=== PATIENT | female | born 1940 | race Caucasian/White ===

== ENCOUNTER 2019-04-20 17:23 | Inpatient (IN) | payer OTHER, SELFPAY ==
[2019-04-20] VITALS (7 sets, daily range): BP systolic 146–192; BP diastolic 64–84; PULSE 55–64; RESP 14–20; TEMP 36.7–37.2; O2SAT 97–100; BMI 23.0
[2019-04-20] MEDS: ONDANSETRON 4 MG/2 ML INJ IV ×2 (18:10→21:23)
[2019-04-20] MEDS: SODIUM CHLORIDE 0.9% 1,000 ML 150 ML IV (18:10)
[2019-04-20 18:14] LABS: Add Manual Diff / Slide Review NO; Basophils Absolute Auto 100 /uL (0-100); Basophils Percent Auto 0.7 % (0-2); Eosinophils Absolute Auto 100 /uL (0-450); Eosinophils Percent Auto 0.7 % (2-4); Hematocrit 27.8 % (36-46); Lymphocytes Absolute Auto 2900 /uL (1100-4500); Lymphocytes Percent Auto 25.8 % (25-40); Mean Corpuscular HGB Conc 32.5 % (30-36); Mean Corpuscular Hemoglobin 29.4 PG (26-34); Mean Corpuscular Volume 90.5 fL (80-100); Monocytes Absolute Auto 1000 /uL (0-900); Neutrophils Absolute Auto 7300 /uL (1500-7000); Neutrophils Percent Auto 63.8 % (50-75); Platelet Count 364 X10^3/uL (150-400); Red Blood Cell Count 3.07 X10^6/uL (4.0-5.2); Red Cell Distribution Width 15.4 % (11.6-14.8); White Blood Cell Count 11.4 X10^3/uL (4.5-11.0)
[2019-04-20 18:17] LABS: Prothrombin Time 11.3 SECONDS (10.1-12.7)
[2019-04-20 18:19] LABS: PTT Partial Thromboplastin Tim 33 SECONDS (26.4-36.2)
[2019-04-20 18:26] LABS: Alanine Aminotransferase 17 IU/L (<35); Albumin Globulin Ratio 1.2 (1.0-2.8); Alkaline Phosphatase 110 U/L (38-126); Aspartate Aminotransferase 30 IU/L (14-36); BUN Creatinine Ratio 24.7 (6-22); Bilirubin Total 0.4 mg/dL (0.2-1.3); Blood Urea Nitrogen 47 mg/dL (7-17); Calcium 9.2 mg/dL (8.4-10.2); Carbon Dioxide 22 mmol/L (22-32); Chloride 100 mmol/L (98-107); Estimated Glomerular Filt Rate 25.5 mL/min (>60); Globulin 3.4 g/dL (1.7-4.1); Glucose 211 mg/dL (80-110); HEMOLYSIS < 15 (0-50); Lipase 288 U/L (23-300); Potassium 4.4 mmol/L (3.4-5.1); Sodium 136 mmol/L (137-145); Total Protein 7.4 g/dL (6.3-8.2)
--- NOTE | 2019-04-20 18:36 | ED_ITS ---
HPI - General Adult General Chief complaint: Urogenital-Female Stated complaint: kidney issues Time Seen by Provider: 04/20/19 18:21 Source: patient Mode of arrival: Ambulatory Limitations: no limitations History of Present Illness HPI narrative: 78-year-old woman with a history of chronic pain, hypertension, congenital pelvic nonfunctional kidney presented to her primary care doctor yesterday complaining of 2 weeks of general malaise increasing right flank pain, vomiting diarrhea and was noted to have an almost 15 lb weight loss over the past month. Labs were done CT scan was ordered she was started on Keflex for presumed UTI. Labs returned today with significantly worsening renal function and she sent to the emergency room for further evaluation. Her family notes that she has not been eating much over the last 2 weeks. She is on both OxyContin and oxycodone for chronic pain to the complaints of increasing right flank pain are even more concerning. She apparently has had her gallbladder removed but recurrence gallstones and blockages with ERCPs were done in [place]. Last episodes of vomiting and diarrhea for about 48 hours ago. She continues to feel weak but has no other complaints. She denies fever, rashes, cough,, headache, increased edema, dizziness Related Data Home Medications Medication Instructions Recorded Confirmed aspirin [Adult Low Dose Aspirin] 81 mg PO BEDTIME 04/20/19 04/20/19 atorvastatin 40 mg PO BEDTIME 04/20/19 04/20/19 carvedilol [Coreg] 12.5 mg PO BEDTIME 04/20/19 04/20/19 cephalexin 500 mg PO BID 04/20/19 04/20/19 cholecalciferol (vitamin D3) 1,000 unit PO BEDTIME 04/20/19 04/20/19 cimetidine [Tagamet HB] 400 mg PO BEDTIME 04/20/19 04/20/19 diltiazem HCl [Tiazac] 360 mg PO BEDTIME 04/20/19 04/20/19 donepezil [Aricept] 10 mg PO BEDTIME 04/20/19 04/20/19 hydrochlorothiazide 25 mg PO BEDTIME 04/20/19 04/20/19 insulin glargine [Lantus Solostar 30 unit SUBCUT BEDTIME 04/20/19 04/20/19 U-100 Insulin] insulin lispro 5 - 10 unit SUBCUT TID PRN 04/20/19 04/20/19 losartan 100 mg PO BEDTIME 04/20/19 04/20/19 multivitamin,[id number] 1 tab PO BEDTIME 04/20/19 04/20/19 [Complete Multivitamin] naloxone 4 mg INTRANASAL Q3M PRN 04/20/19 04/20/19 oxycodone [OxyContin] 10 mg PO BID 04/20/19 04/20/19 oxycodone-acetaminophen [Percocet] 1 tab PO Q6H PRN 04/20/19 04/20/19 potassium chloride 8 meq PO BEDTIME 04/20/19 04/20/19 trazodone 150 mg PO BEDTIME 04/20/19 04/20/19 vit C-E-zinc [id number] 1 tab PO BEDTIME 04/20/19 04/20/19 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 (Acute) Social History household members: significant other Smoking Status: Unknown if ever smoked Smoking Status: Unknown if ever smoked alcohol intake frequency: holidays/special occasions only Substance Use Type: does not use Exam Narrative Exam Narrative: General: Pale, perseverating questions, unable to provide complete history HEENT: Dry mucous membranes, no cervical adenopathy Neck: Supple without jugular venous distention Chest: Minor scattered wheezes throughout lung mijares without any rhonchi, full and symmetrical air movemen Cardiac: Regular rate and rhythm, no murmurs are appreciated Abdomen: Mild tenderness in the right lower quadrant radiating up into the right flank without rebound or guarding. Normal bowel tones Spine and pelvis: No point tenderness along the axial skeleton and no tenderness with manipulation of the pelvis Skin: Pale dry no rashes well perfused Neurologic: Mild memory deficit but nonfocal exam otherwise Psych: Poor insight and understanding into information related Initial Vital Signs Initial Vital Signs: Vital Signs Temperature 98.5 F 04/20/19 17:30 Pulse Rate 64 04/20/19 17:30 Respiratory Rate 14 04/20/19 17:30 Blood Pressure 169/72 H 04/20/19 17:30 Pulse Oximetry 100 04/20/19 17:30 Course Orders Ordered: ED Orders 04/20/19 18:00 Complete Blood Count AUTO DIFF Stat Comprehensive Metabolic Panel Stat Lipase Stat Partial Thromboplastin Time Stat Prothrombin Time INR Stat 04/20/19 18:54 CT abdomen pelvis wo con Stat Acetaminophen (Tylenol) 975 mg PO Q8H [facility] Last Admin: 04/21/19 00:20 Dose: 975 mg Documented by: IBIS Bisacodyl (Dulcolax) 10 mg [place] DAILY PRN PRN Reason: Constipation Docusate Sodium (Colace) 100 mg PO BID PRN PRN Reason: Constipation Heparin Sodium (Porcine) (Heparin) 5,000 unit SUBCUT BID [facility] Last Admin: 04/21/19 00:20 Dose: 5,000 unit Documented by: IBIS Hydromorphone HCl (Dilaudid) 1 mg IV Q3H PRN PRN Reason: BREAKTHROUGH PAIN Sodium Chloride (Normal Saline 0.9%) 1,000 mls @ 100 mls/hr IV BOLUS ONE Stop: 04/21/19 04:04 Last Infusion: 04/21/19 00:29 Dose: 100 mls/hr Documented by: Infusion: 04/20/19 20:48 Dose: 150 mls/hr Documented by: Admin: 04/20/19 18:10 Dose: 150 mls/hr Documented by: GIDEON Naloxone HCl (Narcan) 0.2 mg IV Q2MIN PRN PRN Reason: Opiate Reversal Ondansetron HCl (Zofran) 8 mg IV Q8HR PRN PRN Reason: Nausea And Vomiting Oxycodone HCl (Percolone) 10 mg PO Q6HR PRN PRN Reason: Pain, Severe (7-10) Discontinued Medications Hydromorphone HCl (Dilaudid) 1 mg IV NOW ONE Stop: 04/20/19 22:21 Last Admin: 04/20/19 22:31 Dose: 1 mg Documented by: CLAIR Ondansetron HCl (Zofran) 4 mg IV NOW ONE Stop: 04/20/19 18:05 Last Admin: 04/20/19 18:10 Dose: 4 mg Documented by: GIDEON Ondansetron HCl (Zofran) 4 mg IV NOW ONE Stop: 04/20/19 21:18 Last Admin: 04/20/19 21:23 Dose: 4 mg Documented by: GIDEON Oxycodone HCl (Oxycontin) 10 mg PO NOW ONE Stop: 04/20/19 21:18 Last Admin: 04/20/19 21:23 Dose: 10 mg Documented by: GIDEON Oxycodone HCl (Percolone) 5 mg PO NOW ONE Stop: 04/20/19 21:19 Last Admin: 04/20/19 21:23 Dose: 5 mg Documented by: GIDEON Pantoprazole Sodium (Protonix) 40 mg IV NOW ONE Stop: 04/20/19 22:22 Last Admin: 04/20/19 22:33 Dose: 40 mg Documented by: CLAIR Vital Signs Vital signs: Vital Signs - 8 hr 04/20/19 17:30 04/20/19 18:00 04/20/19 19:00 Temperature 98.5 F Pulse Rate 64 61 55 L Respiratory Rate 14 18 18 Blood Pressure 169/72 H Blood Pressure [Right Arm] 192/84 H 173/74 H Pulse Oximetry 100 97 99 04/20/19 19:52 Temperature Pulse Rate 56 L Respiratory Rate 14 Blood Pressure Blood Pressure [Right Arm] 173/75 H Pulse Oximetry 99 Medical Decision Making Medical Records Medical records reviewed: Yes I reviewed the patient's medical records. Lab Data Lab results reviewed: Yes I reviewed the patient's lab results. Result diagrams: 04/20/19 18:00 04/20/19 18:00 Labs: Lab Results 04/20/19 04/20/19 04/20/19 Range/Units 18:00 18:00 18:00 WBC 11.4 H (4.5-11.0) X10^3/uL RBC 3.07 L (4.0-5.2) X10^6/uL Hgb 9.0 L (12.0-16.0) g/dL Hct 27.8 L (36-46) % MCV 90.5 (80-100) fL MCH 29.4 (26-34) PG MCHC 32.5 (30-36) % RDW 15.4 H (11.6-14.8) % Plt Count 364 (150-400) X10^3/uL Neut % (Auto) 63.8 (50-75) % Lymph % (Auto) 25.8 (25-40) % [place] % (Auto) 9.0 (3-14) % Eos % (Auto) 0.7 L (2-4) % Baso % (Auto) 0.7 (0-2) % Neut # (Auto) 7300 H (9546-5394) /uL Lymph # (Auto) 2900 (3786-4848) /uL [place] # (Auto) 1000 H (0-900) /uL Eos # (Auto) 100 (0-450) /uL Baso # (Auto) 100 (0-100) /uL PT 11.3 (10.1-12.7) SECONDS INR 1.0 (0.9-1.3) APTT 33 (26.4-36.2) SECONDS Sodium 136 L (137-145) mmol/L Potassium 4.4 (3.4-5.1) mmol/L Chloride 100 (98-107) mmol/L Carbon Dioxide 22 (22-32) mmol/L BUN 47 H (7-17) mg/dL Creatinine 1.90 H (0.52-1.04) mg/dL Estimated GFR 25.5 L (>60) mL/min BUN/Creatinine Ratio 24.7 H (6-22) Glucose 211 H (80-110) mg/dL Calcium 9.2 (8.4-10.2) mg/dL Total Bilirubin 0.4 (0.2-1.3) mg/dL AST 30 (14-36) IU/L ALT 17 (<35) IU/L Alkaline Phosphatase 110 (38-126) U/L Total Protein 7.4 (6.3-8.2) g/dL Albumin 4.0 (3.5-5.0) g/dL Globulin 3.4 (1.7-4.1) g/dL Albumin/Globulin Ratio 1.2 (1.0-2.8) Lipase 288 (23-300) U/L Carcinoembryonic Ag (0.1-3.0) ng/mL 04/20/19 Range/Units 18:00 WBC (4.5-11.0) X10^3/uL RBC (4.0-5.2) X10^6/uL Hgb (12.0-16.0) g/dL Hct (36-46) % MCV (80-100) fL MCH (26-34) PG MCHC (30-36) % RDW (11.6-14.8) % Plt Count (150-400) X10^3/uL Neut % (Auto) (50-75) % Lymph % (Auto) (25-40) % [place] % (Auto) (3-14) % Eos % (Auto) (2-4) % Baso % (Auto) (0-2) % Neut # (Auto) (7080-5425) /uL Lymph # (Auto) (0753-1801) /uL [place] # (Auto) (0-900) /uL Eos # (Auto) (0-450) /uL Baso # (Auto) (0-100) /uL PT (10.1-12.7) SECONDS INR (0.9-1.3) APTT (26.4-36.2) SECONDS Sodium (137-145) mmol/L Potassium (3.4-5.1) mmol/L Chloride (98-107) mmol/L Carbon Dioxide (22-32) mmol/L BUN (7-17) mg/dL Creatinine (0.52-1.04) mg/dL Estimated GFR (>60) mL/min BUN/Creatinine Ratio (6-22) Glucose (80-110) mg/dL Calcium (8.4-10.2) mg/dL Total Bilirubin (0.2-1.3) mg/dL AST (14-36) IU/L ALT (<35) IU/L Alkaline Phosphatase (38-126) U/L Total Protein (6.3-8.2) g/dL Albumin (3.5-5.0) g/dL Globulin (1.7-4.1) g/dL Albumin/Globulin Ratio (1.0-2.8) Lipase (23-300) U/L Carcinoembryonic Ag 7.5 H (0.1-3.0) ng/mL Urine Dip Bedside Urine Glucose Negative Bedside Urine Bilirubin - Negative Bedside Urine Ketone + 15 Urine Specific [place] 1.020 Bedside Urine Occult Blood - Negative Bedside Urine pH 5.5 Bedside Urine Protein +/- 15 Bedside Urine Urobilinogen - Negative Bedside Urine Nitrite - Negative Bedside Urine Leukocytes - Negative Esterase Point of care testing: Urine Dip Bedside Urine Glucose Negative Bedside Urine Bilirubin - Negative Bedside Urine Ketone + 15 Urine Specific [place] 1.020 Bedside Urine Occult Blood - Negative Bedside Urine pH 5.5 Bedside Urine Protein +/- 15 Bedside Urine Urobilinogen - Negative Bedside Urine Nitrite - Negative Bedside Urine Leukocytes - Negative Esterase Imaging Data CT scan - abdomen/pelvis: Radiologist's Impression: PELVIS: Genitourinary: The bladder is decompressed. There is a intermediate density 4.3 x 4.5 x 4.4 cm mass within the right hemipelvis (series 2/image 56 and series 4/image 28). The uterus and ovaries are not visualized and may be surgically absent. There is a healed right obturator ring fracture. Miscellaneous: No inguinal hernias or adenopathy. Bones: No suspicious bony lesions. No vertebral body compression fractures. IMPRESSION: 1. Pneumobilia and prior cholecystectomy. Findings may be associated with prior biliary intervention. 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 No hydronephrosis or nephrolithiasis. 3. Right hemipelvic mass. It is unclear whether this represents an adnexal mass given the absence of the ovaries and uterus. If prior cross-sectional studies are available, these would be useful for comparison to determine growth over time. 4. Diverticulosis. No acute diverticulitis. These findings were discussed with Dr. Mcnamara at 7:42 PM on 04/20/19. Dictated by: Lynette Doshi M.D. on 04/20/2019 at 19:35 ECG Data Attestation: I personally reviewed and interpreted this ECG as follows: Interpretation: Normal sinus rhythm with a rate of 60, left axis deviation normal intervals. No acute ischemia. MDM Narrative Medical decision making narrative: 78-year-old woman with worsening renal function creatinine, 0.8 in 2018, yesterday up to 2.5 and today back down to 1.9. Worsening anemia with hemoglobin of 12.6 a year ago down to 9.0 today, within indicate increased RDW as well as MCV. CT scan with a mass in the right hemipelvis unknown whether this is new or changing. There is a mention of a pelvic mass and adnexal cyst from 2014 and 2016 but no comparison films today. Would like to admit the patient for hydration further evaluation of the anemia, renal failure as well as pelvic mass and whether she would like to have this further evaluated or not. 832pm reviewed care with hospital list admitting [employer] Mr. Fuchs Discharge Plan Departure Patient Disposition: Admitted As Inpatient Clinical Impression: Abdominal or pelvic swelling, mass, or lump, right lower quadrant, Abnormal weight loss, Memory loss Acute renal failure Qualifiers: Acute renal failure type: unspecified Qualified Code(s): N17.9 - Acute kidney failure, unspecified Anemia Qualifiers: Anemia type: unspecified type Qualified Code(s): D64.9 - Anemia, unspecified Discharge Date/Time: 04/20/19 21:29 Admit Date/Time: 04/20/19 20:40 Admit Provider: Duane Fuchs
--- NOTE | 2019-04-20 18:54 | DI.CT.S_ITS ---
PROCEDURE: CT ABDOMEN PELVIS WO CON INDICATIONS: Right-sided abdominal pain, 15 lb weight loss in a month, TECHNIQUE: After the administration of oral contrast, 5 mm thick sections acquired from the diaphragms to the symphysis. 5 mm coronal and sagittal reformats were performed. For radiation dose reduction, the following was used: automated exposure control, adjustment of mA and/or kV according to patient size. COMPARISON: None. FINDINGS: Image quality: Excellent. ABDOMEN: Lung bases: Lung bases are clear. Heart size is normal. Solid organs: Liver is normal in size. There is moderate pneumobilia. Gallbladder is surgically absent. Pancreas is normal in size. Spleen is normal in size. No adrenal nodules. There is likely cross fused renal ectopia on the right side. No left-sided kidney is visualized. There is a low-density cyst within the midpole of the fused kidneys. Peritoneum and bowel: Bowel loops demonstrate normal wall thickness and caliber. There are scattered sigmoid diverticula. No evidence for diverticulitis. No free fluid or air. Nodes and vessels: No retroperitoneal or mesenteric adenopathy by size criteria. Aorta and inferior vena cava are normal in size. Dense atheromatous calcifications are present throughout the abdominal aorta. Miscellaneous: No ventral hernias. PELVIS: Genitourinary: The bladder is decompressed. There is a intermediate density 4.3 x 4.5 x 4.4 cm mass within the right hemipelvis (series 2/image 56 and series 4/image 28). The uterus and ovaries are not visualized and may be surgically absent. There is a healed right obturator ring fracture. Miscellaneous: No inguinal hernias or adenopathy. Bones: No suspicious bony lesions. No vertebral body compression fractures. IMPRESSION: 1. Pneumobilia and prior cholecystectomy. Findings may be associated with prior biliary intervention. 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 No hydronephrosis or nephrolithiasis. 3. Right hemipelvic mass. It is unclear whether this represents an adnexal mass given the absence of the ovaries and uterus. If prior cross-sectional studies are available, these would be useful for comparison to determine growth over time. 4. Diverticulosis. No acute diverticulitis. These findings were discussed with Dr. Mcnamara at 7:42 PM on 04/20/19. Dictated by: Lynette Doshi M.D. on 04/20/2019 at 19:35 Approved by: Lynette Doshi M.D. on 04/20/2019 at 19:44
[2019-04-20] MEDS: OXYCODONE ER 10 MG TAB PO (21:23)
[2019-04-20] MEDS: OXYCODONE IR 5 MG TABLET PO (21:23)
--- NOTE | 2019-04-20 21:28 | PC.NURSE ---
Isabel CORONA updated w/ medications given. Pt transferred via w/c w/ partner.
[2019-04-20] MEDS: HYDROMORPHONE 2 MG INJ 1 MG IV (22:31)
[2019-04-20] MEDS: PANTOPRAZOLE 40 MG VIAL IV (22:33)
--- NOTE | 2019-04-20 23:39 | PC.NURSE ---
pt c/o 10/10 sharp abd pain. V.O for dilaudid 1mg. pt. c/o nausea, protonix 40mg given. NPO. IVF. oriented patient to room. call light in reach. bed alarm active.
[2019-04-21] VITALS (7 sets, daily range): BP systolic 150–181; BP diastolic 59–80; PULSE 56–92; RESP 12–18; TEMP 36.1–36.7; O2SAT 94–99
[2019-04-21] LABS: Carcinoembryonic Antigen 7.5 ng/mL (0.1-3.0)
--- NOTE | 2019-04-21 | DI.MRI.S_ITS ---
PROCEDURE: MR PELVIS WO/W CON INDICATIONS: Pelvic mass on prior CT. TECHNIQUE: Coronal HASTE, sagittal breath-hold T2 FSE; axial T1 FSE with and without fat saturation through the pelvis. Optional long- and short-axis uterine nonbreath-hold T2 FSE through the uterus. Sagittal or axial dynamic VIBE during administration of contrast. Post-contrast axial or coronal VIBE/2-D FLASH with fat saturation from the iliac crests to the symphysis. Optional diffusion weighted imaging and ADC may be performed. COMPARISON: [facility], MR, MR ABDOMEN WO CON, 04/21/2019, 10:47. [facility], CT, CT ABDOMEN PELVIS WO CON, 04/20/2019, 19:25. FINDINGS: Image quality: There is motion artifact limiting evaluation. Uterus: Surgically absent. Adnexa: The ovaries are also surgically absent. Within the right hemipelvis, there is an oval circumscribed cystic lesion measuring approximately 4.5 x 3.4 x 4.3 cm with thin internal septations. There is a slightly thickened wall. This demonstrates hypointense to intermediate intensity on T1 and T2 hyperintensity. Following contrast administration, there is mild wall enhancement without a discrete nodular solid enhancing component internally. Urinary system: Bladder wall is normal in thickness. Distal ureters are non distended. There is crossed fused ectopia of the kidneys again noted. Urethra appears normal in morphology. Nodes and vessels: No pelvic or inguinal adenopathy by size criteria. Iliac vessels are normal in size. Bowel and peritoneum: No pathologic free pelvic fluid. Visualized small bowel loops are normal in caliber. There is moderate stool distention of the visualized rectosigmoid colon suggestive of constipation. Soft tissues: No inguinal hernias. Bones: Marrow demonstrates normal overall signal. There are healed fractures of the right superior and inferior pubic rami. IMPRESSION: 1. Septated cystic lesion in the right hemipelvis with a slightly thickened wall but no discrete solid internal enhancing component. There is intermediate T1 signal internally suggestive of proteinaceous or blood products. The differential includes a peritoneal inclusion cyst, paraovarian cyst, or cystic neoplasm. Recommend followup in 6 months to demonstrate stability if clinically indicated. Dictated by: Ishaan Suresh M.D. on 04/21/2019 at 17:05 Approved by: Ishaan Suresh M.D. on 04/21/2019 at 17:19
[2019-04-21] MEDS: HEPARIN 5,000 UNIT/ML VIAL 5000 UNIT SUBCUT ×2 (00:20→20:47)
[2019-04-21] MEDS: ACETAMINOPHEN 325 MG TABLET 975 MG PO ×3 (00:20→16:19)
--- NOTE | 2019-04-21 00:21 | P.HP_ITS ---
History of Present Illness History of Present Illness Date Patient Seen: 04/20/19 Time Patient Seen: 22:20 Chief complaint: kidney issues Narrative: Ms. 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 The patient reports that she has always has right upper quadrant pain and is on chronic opiate therapy including OxyContin and oxycodone. She was seen by her PCP yesterday with complaints of 2 weeks of malaise and increasing right flank pain. She had associated nausea vomiting and 15 lb weight loss over 1 month due to decreased oral intake. Labs were ordered and the patient was started on Keflex for presumptive UTI. Upon return of the labs it was noted the patient had a worsen ing of her renal function and sent to the ER for further evaluation. The patient reports that her abdominal pain has been worse originating sometimes in the right lower quadrant radiating up into the right upper quadrant other times in the right upper quadrant radiating around to the flank. She describes the pain as very sharp and crampy. She has no history of renal calculi. The patient continues to have associated malaise and weakness. The patient denies fevers or chills headaches or dizziness. She has had no nasal congestion or sore throat. She denies chest pain but endorses periodic palpitations which she has had for ?many many years?. The patient denies shortness of breath though did her abdominal pain increases with deep inspiration. She has had no cough or wheezing. She continues to have nausea but no vomiting. She reports stooling regularly with a habit of every other day. She denies urinary symptoms of urgency burning or frequency and no hematuria. Upon arrival to the ER the patient has a temperature of 98.5?, heart rate of 64, blood pressure 169/72 with respirations of 14 saturating 100% on room air. A CT the abdomen is obtained revealing moderate pneumobilia, gallbladder is surgically absent, liver pancreas and spleen all appear normal, bowel loops have normal wall thickness and normal caliber with scattered diverticula without diverticulitis. There is no free fluid or air. In the pelvis there is a right hemipelvic mass measuring 3.4 x 4.5 x 4.4 cm. Radiologist notes inability visualize ovary and uterus, possibly surgically absent, no adenopathy. On laboratory analysis the patient has a white count of 11.4, hemoglobin of 9.0, hematocrit of 27.8 and platelets of 364. She has a PT of 11.3, INR 1.0 and PTT of 33. Her electrolytes are within normal range she has a BUN of 47 and creatinine of 1.9 for an EGFR of 25.5. Her LFTs are within normal range with a total bili of 0.4, AST of 30, ALT is 17 and alkaline phosphatase 110 and albumin of 4.0. The patient is admitted to the medicine service for right upper quadrant abdominal pain requiring further evaluation and pain management. Patient History Medical History (Updated 04/21/19 @ 02:09 by TAWNYA Schultz) Biliary stricture (Inactive) Chronic atrial fibrillation (Acute) 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) Dementia (Acute) Diabetic retinopathy (Acute) Gastroesophageal reflux disease (Acute) Hyperlipidemia (Acute) Hypertension (Acute) alf prescription opiate use (Acute) Osteopenia (Acute) Paroxysmal atrial fibrillation (Acute) Uncontrolled type 2 diabetes mellitus with peripheral neuropathy (Acute) Surgical History (Updated 04/21/19 @ 02:09 by TAWNYA Schultz) History of cholecystectomy (Acute) History of total abdominal hysterectomy and bilateral salpingo-oophorectomy (Acute) Family & Social History Social History: household members significant other Prior Living Arrangements House Safety & Behavioral: Feels Safe in Current Yes Environment Been Physically Hurt or No Threatened By a Person Suicidal Ideation Description None Suicide Plan Description No Plan Tobacco & Substance use: Smoking Status Unknown if ever smoked alcohol intake frequency holiday/special occasion Substance Use Type does not use Comment: Patient lives in [place] in is visiting her children in the [facility]. Patient is EDELMIRA and has a life partner, Cj, whom she has been with for 30 years. She states her mother and father both in their 90s and were in good health, her mother having been a paraplegic following a motor vehicle accident. She has 2 sisters 1 of whom she believes from suicide. She has 2 daughters. Smoking: Patient denies using tobacco products only tried smoking as a and adult. Alcohol: Patient endorses consuming occasional alcoholic beverage but none recent for few months. Substance use: The patient denies recreational pharmaceuticals, herbal or cannabis products. Advanced directives: The patient states her desire to be FULL CODE. She designates her life partner Cj to be her surrogate decision maker. Meds Home Medications and Allergies Home Medications Medication Instructions Recorded Confirmed Type aspirin [Adult Low Dose Aspirin] 81 mg PO BEDTIME 04/20/19 04/20/19 History atorvastatin 40 mg PO BEDTIME 04/20/19 04/20/19 History carvedilol [Coreg] 12.5 mg PO BEDTIME 04/20/19 04/20/19 History cephalexin 500 mg PO BID 04/20/19 04/20/19 History cholecalciferol (vitamin D3) 1,000 unit PO BEDTIME 04/20/19 04/20/19 History cimetidine [Tagamet HB] 400 mg PO BEDTIME 04/20/19 04/20/19 History diltiazem HCl [Tiazac] 360 mg PO BEDTIME 04/20/19 04/20/19 History donepezil [Aricept] 10 mg PO BEDTIME 04/20/19 04/20/19 History hydrochlorothiazide 25 mg PO BEDTIME 04/20/19 04/20/19 History insulin glargine [Lantus Solostar 30 unit SUBCUT BEDTIME 04/20/19 04/20/19 History U-100 Insulin] insulin lispro 5 - 10 unit SUBCUT TID PRN 04/20/19 04/20/19 History losartan 100 mg PO BEDTIME 04/20/19 04/20/19 History multivitamin,[id number] 1 tab PO BEDTIME 04/20/19 04/20/19 History [Complete Multivitamin] naloxone 4 mg INTRANASAL Q3M PRN 04/20/19 04/20/19 History oxycodone [OxyContin] 10 mg PO BID 04/20/19 04/20/19 History oxycodone-acetaminophen [Percocet] 1 tab PO Q6H PRN 04/20/19 04/20/19 History potassium chloride 8 meq PO BEDTIME 04/20/19 04/20/19 History trazodone 150 mg PO BEDTIME 04/20/19 04/20/19 History vit C-E-zinc [id number] 1 tab PO BEDTIME 04/20/19 04/20/19 History [Ocuvite Eye Health] Allergies Allergy/AdvReac Type Severity Reaction Status Date / Time iodine [IODINE] Allergy Severe Anaphylaxis Verified 04/20/19 17:30 Review of Systems Review of Systems ROS: Yes All systems reviewed with the patient and are negative except as otherwise documented Exam Vital Signs (past 8 hours): - 04/20/19 17:30 04/20/19 18:00 04/20/19 19:00 Temperature 98.5 F Pulse Rate 64 61 55 L Respiratory Rate 14 18 18 Blood Pressure 169/72 H Blood Pressure [Right Arm] 192/84 H 173/74 H Pulse Oximetry 100 97 99 04/20/19 19:52 04/20/19 21:28 04/20/19 21:44 Temperature 98.0 F Pulse Rate 56 L 57 L 59 L Respiratory Rate 14 17 20 Blood Pressure 190/75 H Blood Pressure [Right Arm] 173/75 H 182/76 H Pulse Oximetry 99 99 98 Oxygen Delivery Method Room Air Narrative Exam Narrative: GENERAL APPEARANCE: well developed, well nourished elderly woman, mildly uncomfortable appearing. HEENT: Normocephalic, PERRLA, conjunctiva clear, EOMs intact without nystagmus, no rhinorrhea, mucous membranes are moist and pink, dentures in place. NECK/THYROID: neck supple, no JVD, no carotid bruit, no thyromegaly, trachea midline. LYMPH NODES: no cervical or supraclavicular lymphadenopathy. SKIN: Pale, warm and dry, no visible lesions, rashes. HEART: Irregularly irregular rhythm, S1-S2, no murmur, no rubs or gallops, brisk capillary refill, no edema LUNGS: clear to auscultation bilaterally, no coarseness crackles or wheezing, no cough present CHEST: Symmetrical movement, no accessory muscle use, good tidal volume. ABDOMEN: Soft, dull to percussion, moderate pain right lower quadrant, marked pain left upper quadrant, no peritoneal signs,, no organomegaly, right flank pain on palpation, positive flatus, active bowel tones. BACK: Normal curvature, nontender to palpation, no back pain with straight leg raise EXTREMITIES: moves all extremities, strength is 5/5 and symmetrical, no deformities or joint effusions. NEUROLOGIC: AAO x4, mild memory impairment, cranial nerves II-XII grossly intact, sensation intact to light touch, hearing grossly normal to speech. PSYCH: Good eye contact, anxious, occasionally smiling, cooperative, appropriate with stable behavior Objective Labs Result Diagrams: 04/20/19 18:00 04/20/19 18:00 Labs: Laboratory Results - last 24 hr 04/20/19 04/20/19 04/20/19 18:00 18:00 18:00 WBC 11.4 H RBC 3.07 L Hgb 9.0 L Hct 27.8 L MCV 90.5 MCH 29.4 MCHC 32.5 RDW 15.4 H Plt Count 364 Neut % (Auto) 63.8 Lymph % (Auto) 25.8 [place] % (Auto) 9.0 Eos % (Auto) 0.7 L Baso % (Auto) 0.7 Neut # (Auto) 7300 H Lymph # (Auto) 2900 [place] # (Auto) 1000 H Eos # (Auto) 100 Baso # (Auto) 100 PT 11.3 INR 1.0 APTT 33 Sodium 136 L Potassium 4.4 Chloride 100 Carbon Dioxide 22 BUN 47 H Creatinine 1.90 H Estimated GFR 25.5 L BUN/Creatinine Ratio 24.7 H Glucose 211 H Calcium 9.2 Total Bilirubin 0.4 AST 30 ALT 17 Alkaline Phosphatase 110 Total Protein 7.4 Albumin 4.0 Globulin 3.4 Albumin/Globulin Ratio 1.2 Lipase 288 Carcinoembryonic Ag 04/20/19 18:00 WBC RBC Hgb Hct MCV MCH MCHC RDW Plt Count Neut % (Auto) Lymph % (Auto) [place] % (Auto) Eos % (Auto) Baso % (Auto) Neut # (Auto) Lymph # (Auto) [place] # (Auto) Eos # (Auto) Baso # (Auto) PT INR APTT Sodium Potassium Chloride Carbon Dioxide BUN Creatinine Estimated GFR BUN/Creatinine Ratio Glucose Calcium Total Bilirubin AST ALT Alkaline Phosphatase Total Protein Albumin Globulin Albumin/Globulin Ratio Lipase Carcinoembryonic Ag 7.5 H Assessment & Plan Assessment & Plan narrative: This is a 78-year-old female patient who presents to the ER for worsening abdominal pain after being sent by her primary care provider for worsening renal function. The patient has right upper quadrant pain with a right lower quadrant mass, history of cross fused renal ectopia of to the right side. The patient reports 15 lb weight loss over 1 month with her symptoms becoming more acute the last week. 1. Chronic abdominal pain, mass right lower quadrant, present on admission, active. -Patient states he has had chronic pain in the right abdomen but cannot relate history of evaluation. Symptoms worsened progressively or 1 month most acute in the last week. -CT scan finds pneumobilia, normal liver, pancreas and spleen, bowel loops in normal thickness and caliber, scattered diverticula without diverticulitis. No free air or fluid. Right hemipelvic mass 4.3 x 4.5 x 4.4 cm. -Labs find a mildly elevated white blood cell count at 11.4 with an increase in neutrophils and monocytes, liver functions are all within normal limits with a total bili of 0.4, AST of 30, ALT is 17 and alkaline phosphatase 110 an albumin of 4.0. -History of renal ectopia with fused kidneys to the right, to history of renal calculi, creatinine level is 1.9 with previous creatinine from 05/2017 of 0.8. -Requested general surgery consult to Dr. Chawla for abdominal pain and pelvic mass. -Ordered oxycodone 10 mg as needed and OxyContin 10 mg twice daily. -Ordered Dilaudid 1 mg every 3 hours as needed for breakthrough pain. -Ordered MR abdomen without contrast, patient is allergic to iodine with anaphylaxis. -Will obtain urinalysis, culture if indicated. -Ordered CEA level. 2. Paroxysmal Atrial fibrillation, controlled rate, present on admission, stable. -Patient without complaints of chest pain or shortness of breath. -Continue home regimen of Coreg 12.5 mg at bedtime, diltiazem 360 mg by mouth at bedtime. -Patient is not on anticoagulation 3. Diabetes type 2 with retinopathy, possible nephropathy, present on admission, active -Patient's glucose on admission is 211. The patient states she checks her blood sugars daily with meals. -Pain shunt routinely uses Lantus 30 units at bedtime with lispro 5-10 units 3 times daily with meals. -Patient is NPO, fingerstick blood sugar every 6 hours. -Coverage with medium scale correctional insulin. -Will obtain hemoglobin A1c. 4. Essential Hypertension, chronic, present on admission, active -We are continuing patient's home regimen of losartan 100 mg and hyd rochlorothiazide 25 mg daily 5. Gastroesophageal reflux disorder, present on admission, active -Patient has previously been on cimetidine 400 mg p.o. at bedtime. -Ordered ranitidine 150 mg daily at bedtime. 6. Chronic pain, chronic opiate use, present on admission, active -Will continue the patient's home regimen of OxyContin 10 mg twice daily and oxycodone 10 mg as needed. -Have added delighted 1 mg IV every 3 hours for breakthrough pain. 7. Dementia, chronic, present on admission, stable -Patient is interactive with impaired memory. Stable behavior. -Patient routinely takes donepezil 10 mg at bedtime which will be continued. VTE prophylaxis: SCDs and heparin Diet: NPO until surgical evaluation IV fluid: Normal saline 100 cc/hour. The patient is admitted to the hospital for acute on chronic pain that is intractable with new finding of abdominal mass requiring further monitoring and testing. The patient is admitted as an inpatient with expected length of stay to be greater than 2 midnights. Scores [facility] [place] coma scale eye opening: Spontaneous Karen coma scale verbal response: Orientated [place] coma scale motor response: Obey commands Karen coma scale total score: 15
[2019-04-21 00:34] LABS: Bacteria Urine None Seen; WBC Urine None Seen (0-5/HPF)
[2019-04-21 00:38] LABS: Appearance Urine UA CLEAR; Bilirubin Urine UA NEGATIVE (NEGATIVE); Color Urine UA YELLOW; Glucose Urine UA NEGATIVE (Negative); Ketones Urine UA TRACE (NEGATIVE); Leukocyte Esterase Urine UA NEGATIVE (NEGATIVE); Nitrite Urine UA NEGATIVE (Negative); Occult Blood Urine UA TRACE-INTACT (Negative); Protein Urine UA TRACE (Negative); Specific Gravity Urine UA 1.015 (1.000-1.035); Urobilinogen Urine UA 0.2 E.U./dL (0.2)
[2019-04-21 00:45] LABS: Culture Indicated Urine Cult Not Indicated; RBC Urine 0-1/HPF (0-5/HPF); Squamous Epithelial Cell Urine 0-1 /HPF (0-5/HPF)
[2019-04-21] MEDS: SODIUM CHLORIDE 0.9% 1,000 ML 100 ML IV ×2 (01:15→15:03)
[2019-04-21] MEDS: HYDROMORPHONE 1 MG INJ IV ×5 (01:41→16:19)
[2019-04-21] MEDS: OXYCODONE IR 10 MG TABLET PO ×3 (05:31→19:20)
[2019-04-21] MEDS: raNITIdine 150 MG CAPSULE PO (05:31)
[2019-04-21 06:16] LABS: Add Manual Diff / Slide Review NO; Basophils Absolute Auto 100 /uL (0-100); Basophils Percent Auto 0.6 % (0-2); Eosinophils Absolute Auto 100 /uL (0-450); Eosinophils Percent Auto 0.6 % (2-4); Hematocrit 26.4 % (36-46); Hemoglobin 8.3 g/dL (12.0-16.0); Lymphocytes Absolute Auto 3200 /uL (1100-4500); Lymphocytes Percent Auto 28.4 % (25-40); Mean Corpuscular HGB Conc 31.5 % (30-36); Mean Corpuscular Hemoglobin 28.8 PG (26-34); Mean Corpuscular Volume 91.6 fL (80-100); Monocytes Absolute Auto 900 /uL (0-900); Monocytes Percent Auto 7.6 % (3-14); Neutrophils Absolute Auto 7100 /uL (1500-7000); Neutrophils Percent Auto 62.8 % (50-75); Platelet Count 298 X10^3/uL (150-400); Red Blood Cell Count 2.88 X10^6/uL (4.0-5.2); Red Cell Distribution Width 15.7 % (11.6-14.8); White Blood Cell Count 11.3 X10^3/uL (4.5-11.0)
[2019-04-21 06:24] LABS: BUN Creatinine Ratio 28.3 (6-22); Blood Urea Nitrogen 34 mg/dL (7-17); Calcium 8.4 mg/dL (8.4-10.2); Carbon Dioxide 22 mmol/L (22-32); Chloride 106 mmol/L (98-107); Estimated Glomerular Filt Rate 43.3 mL/min (>60); Glucose 121 mg/dL (80-110); HEMOLYSIS 17 (0-50); Magnesium 2.3 mg/dL (1.6-2.3); Phosphorous 3.2 mg/dL (2.8-4.1); Potassium 4.5 mmol/L (3.4-5.1); Sodium 137 mmol/L (137-145)
[2019-04-21 06:30] LABS: Hemoglobin A1C% w Est Avg Glu 6.2 % (4.0-6.0)
[2019-04-21 08:05] LABS: Procalcitonin 0.25 ng/mL (<0.5)
[2019-04-21] MEDS: hydroCHLOROthiazide 25 MG TABLET PO (09:43)
--- NOTE | 2019-04-21 10:13 | DI.MRI.S_ITS ---
PROCEDURE: MR ABDOMEN WO CON INDICATIONS: RUQ abd pain radiating to back TECHNIQUE: Coronal HASTE through the abdomen, axial 2-D FLASH in- and [id number], and breath-hold T2 FSE with fat saturation through the biliary system and pancreas. Oblique coronal and axial thin-slice HASTE, radial thick-slab HASTE centered on the extrahepatic bile ducts. Intravenous secretin: Not requested. COMPARISON: [facility], MR, MR PELVIS WO/W CON, 04/21/2019, 13:00. [facility], CT, CT ABDOMEN PELVIS WO CON, 04/20/2019, 19:25. FINDINGS: Image quality: Excellent. Pancreas and biliary system: Extra hepatic duct is mildly prominent measuring a 1.1 cm. The extra hepatic duct tapers distally. The intrahepatic bile ducts are mildly prominent. The pneumobilia seen on the recent CT is less well appreciated. The patient is post cholecystectomy. Small cyst which appears external and anterior to the pancreas measuring a 1.2 x 0.8 cm, (09/04). No pancreatic ductal dilatation. Other solid organs: Liver is normal in size. Spleen is normal in size. No adrenal nodules. Cross fused ectopia with the kidneys in the right abdomen. Small simple renal cyst. Nodes and vessels: No retroperitoneal or mesenteric adenopathy by size criteria. Aorta and inferior vena cava are normal in size. Bowel and peritoneum: Unenhanced bowel loops are normal in caliber. No free fluid. Lung bases: No basal pleural effusions. Heart size is normal. Bones and soft tissues: No ventral hernias. Bone marrow is of normal overall signal. A cystic lesion in the right pelvis partially visualized. IMPRESSION: 1. No free fluid. No dilated loops of bowel. The aorta is not well evaluated on this exam. 2. Mild dilatation of the extrahepatic and intrahepatic bile ducts. This could be related to post cholecystectomy status. 3. Small cyst which appears external to the pancreas anterior to the neck measuring 1.2 cm. No pancreatic ductal dilatation. No suspicious imaging features identified on this noncontrast examination. Dictated by: Arcenio Fuchs M.D. on 04/21/2019 at 13:44 Approved by: Arcenio Fuchs M.D. on 04/21/2019 at 14:10
--- NOTE | 2019-04-21 11:09 | PC.NURSE ---
Addendum entered by Saira Retana R.N. 04/21/19 13:09: Spoke with Dr. Manuel at 1245, Pt has pain issues. 7-8/10 Sharp intermittent pain to RUQ abd radiating to flank and back, little relief with last PRN Dilaudid dose. Prior to MRCP , per Dr. Manuel pt okay to have PRN Oxycodone 10 mg now and PRN Dilaudid IV start with 1mg then increase to 2mg per order if necessary, monitor RR and sedation. Both meds given at 1255. Pt left unit at 1300 via wheelchair to MRCP. Original Note: Day Shift- Pt left unit at 1035 via wheelchair for MRCP, back at 1105, transport stated pt was unable to ly flat, follow direction, painful. Able to try again at 1500 with PRN pain medications prior to imaging.
[2019-04-21] MEDS: SODIUM CHLORIDE 0.9% FLUSH 10 ML IV ×2 (11:34→12:54)
--- NOTE | 2019-04-21 12:22 | P.CONS_ITS ---
History of Present Illness Consult details Date Patient Seen: 04/21/19 Time Patient Seen: 09:30 Chief complaint: kidney issues Reason for consult: abdominal mass, pneumobilia Requesting provider: Sailaja Manuel Narrative: This is a 78-year-old woman with history of chronic pain on oxycodone and OxyContin, diabetes, hypertension, cholecystectomy, multiple ERCPs for biliary stricture and retained stones, prior hysterectomy and oophorectomy, and paroxysmal atrial fibrillation, presents with complaint of abdominal pain/right flank pain for about 1 year, becoming more severe over the last 24 hours. She describes it as sharp sudden onset upper abdominal/right upper quadrant pain which comes on at random. It sometimes lasts a very short time, only a few minutes. It sometimes lasts for several hours or days. She does not notice any correlation with eating, daytime or nighttime, bowel movements, or other isolated events that she can correlate it with time cordon. She denies fever, rash, cough, headache, edema, dizziness, constipation. She does have some diarrhea for the past 1 week. She denies any melena or hematochezia. She denies any lower abdominal pain. She was seen by her primary care doctor on Thursday, and was started on Keflex for UTI. Yesterday labs returned showing worsening renal failure with a creatinine of 1.9. Her pain was persistent, and she ultimately decided to come into the ER. CT scan in the ER shows pneumobilia and a right lower quadrant mass. ROS: Thirteen system review is otherwise negative other than as mentioned below and in HPI. PE: GENERAL: Alert, comfortable, with intermittent distress due to right upper quadrant pain, Appears stated age. Answers questions promptly and appropriately. Vital signs noted. HENT: Normocephalic, atraumatic. Hearing intact. Oral mucosa is pink and moist. EYES: Conjunctiva pink, sclera white, no periorbital swelling. CARDIOVASCULAR: Regular rate. No pedal edema. RESPIRATORY: Non-tachypneic, breathing comfortably on room air. GASTROINTESTINAL: Abdomen soft and non-distended, moderate tenderness to palpation in the right upper quadrant and epigastrium, no palpable masses, no lower abdominal tenderness GENITALURINARY: No flank tenderness. MUSCULOSKELETAL: Equal tone and mass bilaterally. SKIN: Warm, dry, soft, appropriate color for ethnicity. No other lesions, rashes, or wounds. NEURO: Alert and Oriented X 3. No gross sensory deficits, or cognitive issues. PSYCH: Appropriate affect and mood. Meds Home Medications and Allergies Home Medications Medication Instructions Recorded Confirmed Type aspirin [Adult Low Dose Aspirin] 81 mg PO BEDTIME 04/20/19 04/20/19 History atorvastatin 40 mg PO BEDTIME 04/20/19 04/20/19 History carvedilol [Coreg] 12.5 mg PO BEDTIME 04/20/19 04/20/19 History cephalexin 500 mg PO BID 04/20/19 04/20/19 History cholecalciferol (vitamin D3) 1,000 unit PO BEDTIME 04/20/19 04/20/19 History cimetidine [Tagamet HB] 400 mg PO BEDTIME 04/20/19 04/20/19 History diltiazem HCl [Tiazac] 360 mg PO BEDTIME 04/20/19 04/20/19 History donepezil [Aricept] 10 mg PO BEDTIME 04/20/19 04/20/19 History hydrochlorothiazide 25 mg PO BEDTIME 04/20/19 04/20/19 History insulin glargine [Lantus Solostar 30 unit SUBCUT BEDTIME 04/20/19 04/20/19 History U-100 Insulin] insulin lispro 5 - 10 unit SUBCUT TID PRN 04/20/19 04/20/19 History losartan 100 mg PO BEDTIME 04/20/19 04/20/19 History multivitamin,[id number]-vimr-[id number] 1 tab PO BEDTIME 04/20/19 04/20/19 History [Complete Multivitamin] naloxone 4 mg INTRANASAL Q3M PRN 04/20/19 04/20/19 History oxycodone [OxyContin] 10 mg PO BID 04/20/19 04/20/19 History oxycodone-acetaminophen [Percocet] 1 tab PO Q6H PRN 04/20/19 04/20/19 History potassium chloride 8 meq PO BEDTIME 04/20/19 04/20/19 History trazodone 150 mg PO BEDTIME 04/20/19 04/20/19 History vit C-E-zinc [id number] 1 tab PO BEDTIME 04/20/19 04/20/19 History [Ocuvite [facility]] Allergies Allergy/AdvReac Type Severity Reaction Status Date / Time iodine [IODINE] Allergy Severe Anaphylaxis Verified 04/20/19 17:30 Exam Vital Signs (past 8 hours): - 04/21/19 05:30 04/21/19 07:56 04/21/19 09:00 Temperature 98.0 F 97.5 F L Pulse Rate 67 69 Respiratory Rate 16 18 Blood Pressure 150/78 H 181/68 H Pulse Oximetry 97 95 98 Oxygen Delivery Method Room Air Oxygen Flow Rate [address] scan - abdomen: Radiologist's impression: CT scan: MPRESSION: 1. Pneumobilia and prior cholecystectomy. Findings may be associated with prior biliary intervention. 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 No hydronephrosis or nephrolithiasis. 3. Right hemipelvic mass. It is unclear whether this represents an adnexal mass given the absence of the ovaries and uterus. If prior cross-sectional studies are available, these would be useful for comparison to determine growth over time. 4. Diverticulosis. No acute diverticulitis. Labs Result Diagrams: 04/21/19 05:57 04/21/19 05:57 Labs: Laboratory Results - last 24 hr 04/20/19 04/20/19 04/20/19 18:00 18:00 18:00 WBC 11.4 H RBC 3.07 L Hgb 9.0 L Hct 27.8 L MCV 90.5 MCH 29.4 MCHC 32.5 RDW 15.4 H Plt Count 364 Neut % (Auto) 63.8 Lymph % (Auto) 25.8 [place] % (Auto) 9.0 Eos % (Auto) 0.7 L Baso % (Auto) 0.7 Neut # (Auto) 7300 H Lymph # (Auto) 2900 [place] # (Auto) 1000 H Eos # (Auto) 100 Baso # (Auto) 100 PT 11.3 INR 1.0 APTT 33 Sodium 136 L Potassium 4.4 Chloride 100 Carbon Dioxide 22 BUN 47 H Creatinine 1.90 H Estimated GFR 25.5 L BUN/Creatinine Ratio 24.7 H Glucose 211 H Hemoglobin A1c Calcium 9.2 Phosphorus Magnesium Total Bilirubin 0.4 AST 30 ALT 17 Alkaline Phosphatase 110 Total Protein 7.4 Albumin 4.0 Globulin 3.4 Albumin/Globulin Ratio 1.2 Lipase 288 Carcinoembryonic Ag Procalcitonin Urine Color Urine Appearance Urine pH Ur Specific [place] Urine Protein Urine Glucose (UA) Urine Ketones Urine Occult Blood Urine Nitrate Urine Bilirubin Urine Urobilinogen Ur Leukocyte Esterase Urine RBC Urine WBC Ur Squamous Epith Cells Urine Bacteria Ur Culture Indicated? 04/20/19 04/21/19 04/21/19 18:00 00:32 05:57 WBC 11.3 H RBC 2.88 L Hgb 8.3 L Hct 26.4 L MCV 91.6 MCH 28.8 MCHC 31.5 RDW 15.7 H Plt Count 298 Neut % (Auto) 62.8 Lymph % (Auto) 28.4 [place] % (Auto) 7.6 Eos % (Auto) 0.6 L Baso % (Auto) 0.6 Neut # (Auto) 7100 H Lymph # (Auto) 3200 [place] # (Auto) 900 Eos # (Auto) 100 Baso # (Auto) 100 PT INR APTT Sodium Potassium Chloride Carbon Dioxide BUN Creatinine Estimated GFR BUN/Creatinine Ratio Glucose Hemoglobin A1c Calcium Phosphorus Magnesium Total Bilirubin AST ALT Alkaline Phosphatase Total Protein Albumin Globulin Albumin/Globulin Ratio Lipase Carcinoembryonic Ag 7.5 H Procalcitonin Urine Color Yellow Urine Appearance Clear Urine pH 5.0 Ur Specific [place] 1.015 Urine Protein Trace H Urine Glucose (UA) Negative Urine Ketones Trace H Urine Occult Blood Trace-intact Urine Nitrate Negative Urine Bilirubin Negative Urine Urobilinogen 0.2 Ur Leukocyte Esterase Negative Urine RBC 0-1/hpf Urine WBC None seen Ur Squamous Epith Cells 0-1 /hpf Urine Bacteria None seen Ur Culture Indicated? Cult not indicated 04/21/19 04/21/19 04/21/19 05:57 05:57 05:57 WBC RBC Hgb Hct MCV MCH MCHC RDW Plt Count Neut % (Auto) Lymph % (Auto) [place] % (Auto) Eos % (Auto) Baso % (Auto) Neut # (Auto) Lymph # (Auto) [place] # (Auto) Eos # (Auto) Baso # (Auto) PT INR APTT Sodium 137 Potassium 4.5 Chloride 106 Carbon Dioxide 22 BUN 34 H Creatinine 1.20 H Estimated GFR 43.3 L BUN/Creatinine Ratio 28.3 H Glucose 121 H Hemoglobin A1c 6.2 H Calcium 8.4 Phosphorus 3.2 Magnesium 2.3 Total Bilirubin AST ALT Alkaline Phosphatase Total Protein Albumin Globulin Albumin/Globulin Ratio Lipase Carcinoembryonic Ag Procalcitonin 0.25 Urine Color Urine Appearance Urine pH Ur Specific [place] Urine Protein Urine Glucose (UA) Urine Ketones Urine Occult Blood Urine Nitrate Urine Bilirubin Urine Urobilinogen Ur Leukocyte Esterase Urine RBC Urine WBC Ur Squamous Epith Cells Urine Bacteria Ur Culture Indicated? Assessment & Plan Assessment and plan (1) Acute renal failure: Qualifiers: Acute renal failure type: unspecified Qualified Code(s): N17.9 - Acute kidney failure, unspecified Current visit: Yes Status: Acute (2) Abdominal or pelvic swelling, mass, or lump, right lower quadrant: Current visit: Yes Status: Acute (3) Anemia: Qualifiers: Anemia type: unspecified type Qualified Code(s): D64.9 - Anemia, unspecified Current visit: Yes Status: Acute (4) Abnormal weight loss: Current visit: Yes Status: Acute (5) Memory loss: Current visit: Yes Status: Acute (6) History of ERCP: Current visit: Yes Status: Acute (7) Previous section: Current visit: Yes Status: Acute (8) Cholecystectomy planned: Current visit: Yes Status: Acute (9) Hypertension: Current visit: Yes Status: Acute (10) 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 Her CT scan indicates some pneumobilia, which may be secondary to prior ERCPs. On her CT scan she was also found to have around mass in the right lower quadrant, which is not clearly associated with the bowel or with any other structure. The CT scan was done without IV contrast because she has a contrast allergy. Right now she has an MRI and MRCP pending. Her right upper quadrant pain may be due to reflux of intestinal contents up into the bile duct. The right lower quadrant mass is of unclear etiology. Her CEA is elevated, but this may be due to having diarrhea for the past 1 week. Unfortunately we do not have any older imaging to compare to. She likely has im aging where she was seen in [place] for her cholecystectomy and her multiple ERCPs. 40 minutes were spent face to face with the patient and her family. More than 50% of the time was spent in counseling and co-ordination of care regarding her medical history, her current symptoms, imaging findings, her abdominal pain, and lab findings. Plan: MRI, MRCP to evaluate abdominal mass, and biliary structures Okay for p.o. clear liquids Would consider holding DVT prophylaxis as patient's hemoglobin is 8.3. But if necessary due to comorbidities I would follow hemoglobin closely Would repeat labs daily, or more frequently depending on the use a DVT prophylaxis and any change in vitals/clinical indications Okay for home meds as indicated Further recommendations to follow, pending imaging findings Time Spent With Patient Time with patient: Greater than 35 minutes
--- NOTE | 2019-04-21 15:39 | CM.DANOTE ---
Discharge Planning/Care Management DCP: assment: case received, EMR reviewed and met with pt, her partner Cj and her POA daughter Noemí Paz: [place]: cell: [phone]. Introduced self and role. Pt is a 78 year old female who admitted last night to care of hospitalist team. Consulting: [facility]: Dr. Lemus. Full dx and treatment plan are in process Payer: Medicare and [employer] Admission status: INPT: confirmed by [facility] August. PCP: Wilma Martel: [facility]: [place]. Pt clarifies that she no longer lives in [facility]. She and Cj live in [place] so as to be closer to family in [place]. See Template below for further info re pt's baseline level of function. Pt also has daughter Karol who lives in [place]. P: DCP team will be following as POC unfolds to assist with d/c issues and options as these become clearer. CM Discharge Assessment Start: 04/21/19 15:36 Freq: Status: Active Protocol: Document 04/21/19 15:36 ITV (Rec: 04/21/19 15:39 ITV [id number]) Discharge Planning Assessment Advance Directives? Yes History Provided By Patient,Family Member, Significant Other,Medical Record Has Patient been admitted in last 30 No days? Prior Living Arrangements House Household Members significant other Type of transportation used prior to Relies on Others admit Independent with ADL's Yes Is patient alert and oriented? Yes DME Already Rented / Owned Cane Comment Pt is legally blind: can see but everything is blurry. Pt says she has dx macular degeneration. Because of this she uses a cane when she goes out and she does not drive. Her partner Cj Rosario does all driving. Whiteboard Updated in Patient Room with Yes name and ext. # of [employer] Review Status In Process
--- NOTE | 2019-04-21 19:34 | PM.PN.1 ---
Subjective Subjective Date Patient Seen: 04/21/19 Interval history: Patient states right-sided abdominal pain is about the same. Abdominal MRI showed mild dilatation of extrahepatic and intrahepatic bile ducts consistent with her cholecystectomy. There was a small cyst external to the pancreas which did not look anything suspicious for malignancy. Pelvic MRI septated cystic lesion in right hemipelvis. Patient's daughter tells me she was diagnosed with a pelvic mass for 5 years ago which they told her was benign. Exam Vital Signs (past 8 hours): - 04/21/19 12:56 04/21/19 16:11 Temperature 97.5 F L Pulse Rate 56 L 92 H Respiratory Rate 12 18 Blood Pressure 173/59 H Pulse Oximetry 99 94 Oxygen Delivery Method Room Air Oxygen Flow Rate 0 Objective Labs Result Diagrams: 04/21/19 05:57 04/21/19 05:57 Labs: Laboratory Results - last 24 hr 04/20/19 04/21/19 04/21/19 18:00 00:32 05:57 WBC 11.3 H RBC 2.88 L Hgb 8.3 L Hct 26.4 L MCV 91.6 MCH 28.8 MCHC 31.5 RDW 15.7 H Plt Count 298 Neut % (Auto) 62.8 Lymph % (Auto) 28.4 [place] % (Auto) 7.6 Eos % (Auto) 0.6 L Baso % (Auto) 0.6 Neut # (Auto) 7100 H Lymph # (Auto) 3200 [place] # (Auto) 900 Eos # (Auto) 100 Baso # (Auto) 100 Sodium Potassium Chloride Carbon Dioxide BUN Creatinine Estimated GFR BUN/Creatinine Ratio Glucose Hemoglobin A1c Calcium Phosphorus Magnesium Carcinoembryonic Ag 7.5 H Procalcitonin Urine Color Yellow Urine Appearance Clear Urine pH 5.0 Ur Specific [place] 1.015 Urine Protein Trace H Urine Glucose (UA) Negative Urine Ketones Trace H Urine Occult Blood Trace-intact Urine Nitrate Negative Urine Bilirubin Negative Urine Urobilinogen 0.2 Ur Leukocyte Esterase Negative Urine RBC 0-1/hpf Urine WBC None seen Ur Squamous Epith Cells 0-1 /hpf Urine Bacteria None seen Ur Culture Indicated? Cult not indicated 04/21/19 04/21/19 04/21/19 05:57 05:57 05:57 WBC RBC Hgb Hct MCV MCH MCHC RDW Plt Count Neut % (Auto) Lymph % (Auto) [place] % (Auto) Eos % (Auto) Baso % (Auto) Neut # (Auto) Lymph # (Auto) [place] # (Auto) Eos # (Auto) Baso # (Auto) Sodium 137 Potassium 4.5 Chloride 106 Carbon Dioxide 22 BUN 34 H Creatinine 1.20 H Estimated GFR 43.3 L BUN/Creatinine Ratio 28.3 H Glucose 121 H Hemoglobin A1c 6.2 H Calcium 8.4 Phosphorus 3.2 Magnesium 2.3 Carcinoembryonic Ag Procalcitonin 0.25 Urine Color Urine Appearance Urine pH Ur Specific [place] Urine Protein Urine Glucose (UA) Urine Ketones Urine Occult Blood Urine Nitrate Urine Bilirubin Urine Urobilinogen Ur Leukocyte Esterase Urine RBC Urine WBC Ur Squamous Epith Cells Urine Bacteria Ur Culture Indicated? Assessment & Plan Assessment & Plan narrative: Patient presenting with exacerbation of her chronic abdominal pain. There does not appear anything acute going on. At the time I saw her this evening she is looking comfortable and eating her dinner. Will plan on discharge in a.m. and follow-up with her PCP. Appreciate consult by Dr. Chahal and will await any further recommendations from her.
[2019-04-21] MEDS: ATORVASTATIN 20 MG TABLET 40 MG PO (20:46)
[2019-04-21] MEDS: carvediloL 12.5 MG TABLET PO (20:46)
[2019-04-21] MEDS: LOSARTAN 50 MG TABLET 100 MG PO (20:47)
[2019-04-21] MEDS: DONEPEZIL 5 MG TABLET 10 MG PO (20:47)
[2019-04-21] MEDS: dilTIAZem CD 180 MG CAP 360 MG PO (20:47)
[2019-04-21] MEDS: INSULIN ASPART 100 UNIT/ML INSULN PEN SUBCUT (22:17)
--- NOTE | 2019-04-21 23:07 | PC.NURSE ---
BP remains elevated this evening. Provider notified; No new orders at this time.
[2019-04-22 00:56] VITALS: BP 183/71; PULSE 82; RESP 18; TEMP 36.5; O2SAT 100
[2019-04-22] MEDS: OXYCODONE IR 10 MG TABLET PO ×2 (01:07→06:37)
--- NOTE | 2019-04-22 01:28 | PC.NURSE ---
TAWNYA Parra notified that pt. pulled out her IV access & pt. refused to replace her IV access. TAWNYA Parra also notified that she has a telemetry. She ordered to keep her on telemetry, will monitor.
--- NOTE | 2019-04-22 02:49 | PC.NURSE ---
Pt. refused an IV start, states I don't need it I'm going home this morning. TAWNYA Parra ordered to place an IV but pt. cont. to refused. requested medication to help her sleep, will notify hospitalist.
[2019-04-22] MEDS: TRAZODONE 50 MG TABLET 150 MG PO (03:04)
[2019-04-22] MEDS: ACETAMINOPHEN 325 MG TABLET 975 MG PO (03:04)
[2019-04-22 05:02] VITALS: BP 169/68; PULSE 89; RESP 18; TEMP 36.7; O2SAT 98
[2019-04-22] MEDS: raNITIdine 150 MG CAPSULE PO (06:29)
[2019-04-22 07:38] VITALS: BP 178/62; PULSE 61; RESP 18; TEMP 36.7; O2SAT 98
--- NOTE | 2019-04-22 08:59 | PM.DS.1 ---
History of Present Illness History of Present Illness Chief complaint: kidney issues Narrative: Ms. 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 The patient reports that she has always has right upper quadrant pain and is on chronic opiate therapy including OxyContin and oxycodone. She was seen by her PCP yesterday with complaints of 2 weeks of malaise and increasing right flank pain. She had associated nausea vomiting and 15 lb weight loss over 1 month due to decreased oral intake. Labs were ordered and the patient was started on Keflex for presumptive UTI. Upon return of the labs it was noted the patient had a worsening of her renal function and sent to the ER for further evaluation. The patient reports that her abdominal pain has been worse originating sometimes in the right lower quadrant radiating up into the right upper quadrant other times in the right upper quadrant radiating around to the flank. She describes the pain as very sharp and crampy. She has no history of renal calculi. The patient continues to have associated malaise and weakness. The patient denies fevers or chills headaches or dizziness. She has had no nasal congestion or sore throat. She denies chest pain but endorses periodic palpitations which she has had for ?many many years?. The patient denies shortness of breath though did her abdominal pain increases with deep inspiration. She has had no cough or wheezing. She continues to have nausea but no vomiting. She reports stooling regularly with a habit of every other day. She denies urinary symptoms of urgency burning or frequency and no hematuria. Upon arrival to the ER the patient has a temperature of 98.5?, heart rate of 64, blood pressure 169/72 with respirations of 14 saturating 100% on room air. A CT the abdomen is obtained revealing moderate pneumobilia, gallbladder is surgically absent, liver pancreas and spleen all appear normal, bowel loops have normal wall thickness and normal caliber with scattered diverticula without diverticulitis. There is no free fluid or air. In the pelvis there is a right hemipelvic mass measuring 3.4 x 4.5 x 4.4 cm. Radiologist notes inability visualize ovary and uterus, possibly surgically absent, no adenopathy. On laboratory analysis the patient has a white count of 11.4, hemoglobin of 9.0, hematocrit of 27.8 and platelets of 364. She has a PT of 11.3, INR 1.0 and PTT of 33. Her electrolytes are within normal range she has a BUN of 47 and creatinine of 1.9 for an EGFR of 25.5. Her LFTs are within normal range with a total bili of 0.4, AST of 30, ALT is 17 and alkaline phosphatase 110 and albumin of 4.0. The patient is admitted to the medicine service for right upper quadrant abdominal pain requiring further evaluation and pain management. Discharge Providers Provider Date of admission: 04/20/19 20:40 Discharge Date: 04/22/19 Consults: 04/20/19 23:04 Consult to Dietitian, Adult Routine Comment: Reason For Exam: 15 lb weight loss in 1 month, pelvic mass Consult to Discharge Planning Routine Comment: 04/20/19 23:53 Consult to General Surgery Routine Comment: Consulting Provider: Zaire Chawla Reason for consultation: RUQ abdominal pain, right pelvic mass Has provider been notified: No Discharge provider: Pool Baron MD Summary Hospital Course Discharge Diagnosis: 1. Acute kidney injury, prerenal 2. Chronic right upper quadrant abdominal pain, undetermined etiology 3. Cystic lesion right hemipelvis, chronic 4. Diabetes insulin requiring 5. Hypertension 6. Opioid dependency for chronic pain 7. Abnormal weight loss Hospital Course: Patient was admitted for acute renal failure due to dehydration and worsening of her chronic pain. She was provided IV hydration with improvement of renal function. Her last creatinine is 1.2, improved from 1.9. Dr. Chahal was consulted for General surgery to help with evaluation of abdominal pain. She thinks the pain may be due to reflux of intestinal contents in to biliary system. Patient states she has seen GI for evaluation of this pain. Her abdominal MRI showed mild dilatation of extrahepatic and intrahepatic bile ducts consistent with her cholecystectomy. There was a small cyst external to the pancreas which did not look anything suspicious for malignancy. Pelvic MRI showed a 4.5 x 3.4 x 4.3 cm septated cystic lesion in right hemipelvis. Patient has surgically absent uterus and ovaries. Patient's daughter tells me she was diagnosed with a pelvic mass several years ago which they reportedly told her was nothing to worry about. Patient was continued on her opioid medications in hospital. She continued with complaints of 7/10 abdominal pain. However there is no acute process going on and she is best served by follow-up with her GI provider. She may benefit from ERCP or endoscopic ultrasound which we do not have capability to do at [facility]. Status at Discharge Cognitive/behavioral status at discharge: oriented Functional status at discharge: independent ambulation Overall status at discharge: patient is back to baseline Time Spent with Patient Time spent: Greater than 30 minutes Exam Vital Signs (past 8 hours): - 04/22/19 05:02 Temperature 98.0 F Pulse Rate 89 Respiratory Rate 18 Blood Pressure 169/68 H Pulse Oximetry 98 Oxygen Delivery Method Room Air Oxygen Flow Rate 0 Objective Labs Result Diagrams: 04/21/19 05:57 04/21/19 05:57 Discharge Plan Discharge Plan Patient Disposition: Home Discharge comment: Give patient copy of imaging tests and reports Discharge orders & Medications Prescriptions: Continued atorvastatin 40 mg Tablet 40 mg PO BEDTIME RF: 0 carvedilol [Coreg] 12.5 mg Tablet 12.5 mg PO BEDTIME RF: 0 potassium chloride 8 mEq Capsule, Extended Release 8 meq PO BEDTIME RF: 0 donepezil [Aricept] 10 mg Tablet 10 mg PO BEDTIME RF: 0 diltiazem HCl [Tiazac] 360 mg Capsule,Extended Release 24 Hr 360 mg PO BEDTIME RF: 0 aspirin [Adult Low Dose Aspirin] 81 mg Tablet,Delayed Release (Dr/Ec) 81 mg PO BEDTIME RF: 0 oxycodone-acetaminophen [Percocet] 5-325 mg Tablet 1 tab PO Q6H PRN (Reason: Pain (Scale Score 4-6)) RF: 0 cimetidine [Tagamet HB] 200 mg Tablet 400 mg PO BEDTIME RF: 0 trazodone 150 mg Tablet 150 mg PO BEDTIME RF: 0 hydrochlorothiazide 25 mg Tablet 25 mg PO BEDTIME RF: 0 losartan 100 mg Tablet 100 mg PO BEDTIME RF: 0 Complete Multivitamin Tablet 1 tab PO BEDTIME RF: 0 insulin lispro 100 unit/mL Cartridge 5 - 10 unit SUBCUT TID PRN (Reason: diabetes) RF: 0 Lantus Solostar U-100 Insulin 100 unit/mL (3 mL) Insulin Pen 30 unit SUBCUT BEDTIME RF: 0 cholecalciferol (vitamin D3) 1,000 unit/drop Drops 1,000 unit PO BEDTIME RF: 0 oxycodone [OxyContin] 10 mg Tablet,Oral Only,Ext.Rel.12 Hr 10 mg PO BID RF: 0 naloxone 4 mg/actuation [place],Non-Aerosol 4 mg INTRANASAL Q3M PRN (Reason: decreased responsiveness) RF: 0 Ocuvite [facility] 50 mg-15 unit- 4.5 mg-2.5 mg Tablet,Chewable 1 tab PO BEDTIME RF: 0 Discontinued cephalexin 500 mg Capsule 500 mg PO BID RF: 0 Follow up/Referrals: Wilma Martel [Other] Diet/Activity/Treatments Diet: Diet as Tolerated Visit Report/Discharge Packet Instructions: DI for Abdominal Pain-Adult, DI for Chronic Pain -- Adult, How to Prevent Falls
[2019-04-22] MEDS: hydroCHLOROthiazide 25 MG TABLET PO (09:31)
--- NOTE | 2019-04-22 11:31 | PC.NURSE ---
Day Shift- Pt reporting 7-8/10 radiating pain from RUQ abd to right flank and back. Explained to pt that she had PRN pain medications last at 0635 and this is now 0750. At home she would take 1 percocet 5/325mg, at hospital she is getting 10mg Oxycodone. Spoke with Dr. Baron around 0815, no further PRN meds at this time, pt may follow her home regime on discharge. Pt very forgetful, repeats questions. Was fixated and anxious regarding not being able to find her blue top and blue sweater that matches her current pants, no other clothing present in room. [employer] called pt's SO Cj who will be bringing clothes in for pt. Was was brought in was pt's blue top and blue sweater. Pt given medical record information regarding Physicians summary, latest lab results, printout summary of MRI abd and pelvis and CT scan of abd/pelvis. Medical record release form signed and copy placed in pt's chart. Per Dr. Baron pt was to have this info to bring to her PCP Dr. Martel in [place]. Discharge summary packet reviewed with pt and her SO Bear who is able to retain more information than pt as she tends to repeat same questions. No further voiced concerns. Pt has all belongings, none left in room. Pt had previously been asking [employer] for more pain medication. None available at that time. Pt did not ask for more pain medications during discharge review. Pt left unit via wheelchair in no distress, pt stated thank you for your care. Left at 1045 with [employer] escort. Cj present to drive pt home.
--- NOTE | 2019-04-22 15:12 | CM.DPC ---
DCP: Continued: Pt was ok'd today for d/c to home setting. A check in now shows that pt did d/c about 1300 in company of partner Cj.
== END 2019-04-22 10:45 | disposition home or self-care (01) | DRG 684 ==
LOC: ED 20:35 → AC 20:41
PROVIDERS: Emergency Medicine; Internal Medicine; Admitting Provider Nurse Practitioner Adult Health; Emergency Provider Emergency Medicine; Referring Provider Emergency Medicine; Visit Provider Nurse Practitioner Adult Health
DX: N17.9 Acute kidney failure, unspecified (principal); R19.03 Right lower quadrant abdominal swelling, mass and lump; G89.29 Other chronic pain; Z79.891 Long term (current) use of opiate analgesic; I48.0 Paroxysmal atrial fibrillation; D64.9 Anemia, unspecified; R63.4 Abnormal weight loss; F03.90 Unspecified dementia, unspecified severity, without behavioral disturbance, psychotic disturbance, mood disturbance, and anxiety; E11.65 Type 2 diabetes mellitus with hyperglycemia; E11.319 Type 2 diabetes mellitus with unspecified diabetic retinopathy without macular edema; E11.42 Type 2 diabetes mellitus with diabetic polyneuropathy; E11.51 Type 2 diabetes mellitus with diabetic peripheral angiopathy without gangrene; I10 Essential (primary) hypertension; E78.5 Hyperlipidemia, unspecified; Z79.4 Long term (current) use of insulin
CPT/HCPCS: 36415; 72197; 74176; 74181; 80048; 80053; 81001; 81003; 82378; 82962; 83036; 83690; 83735; 84100; 84145; 85025; 85610; 85730; 93005; 94762; 96361; 96374; 96376; 99232; 99284; A9579; C9113; J1170; J1644; J2405

== ENCOUNTER 2019-04-24 19:55 | Emergency (ER) | payer OTHER, MEDICARE, SELFPAY ==
[2019-04-20 21:56] VITALS: BMI 23.0
[2019-04-24 19:59] VITALS: BP 188/87; PULSE 71; RESP 16; TEMP 37.2; O2SAT 100; BMI 23.3
--- NOTE | 2019-04-24 20:18 | ED.ABDPAIN ---
HPI - Abdominal Pain General Chief Complaint: Abdominal Pain Stated Complaint: vomiting brown stuff Time Seen by Provider: 04/24/19 20:00 Source: patient Mode of arrival: Wheelchair Limitations: no limitations History of Present Illness HPI narrative: 78-year-old female former smoker of paroxysmal AFib (no anticoagulation), diabetes, hypertension, hyperlipidemia, biliary stricture and recurrent right upper quadrant pain on chronic opiate therapy presents with ongoing epigastric and right upper quadrant pain but also at least 1 episode of coffee-ground emesis today. She is not dizzy nor weak or lightheaded. She denies any history of GI bleed, alcohol abuse, known varices, ulcers or liver history. She denies any dark tarry stools, fever, chills nor chest pain or shortness of breath. She was recently admitted at our hospital for evaluation of abdominal pain. During her ER visit she had a CT scan noting a mass in her pelvis, family states it has been there for years and is nonsurgical and they were told it is nothing to worry about, during the hospitalization she had ultrasound even an MRI of her abdomen. General surgery was consulted and there was a thought that she had regurgitation into her biliary tree and would be best served at a facility with GI and the possibility for ERCP. She returns today with the symptoms as noted above. Her pain is worse with motion and improves with rest. She denies any alcohol. MD complaint: abdominal pain Onset (ago): hour(s) Pain Consistency: constant Location: RUQ and epigastric Severity: moderate Quality: cramping and stabbing Radiation: none Relieving factors: rest Exacerbating factors: movement Associated symptoms: nausea, vomiting and hematemesis Related Data Home Medications Medication Instructions Recorded Confirmed Complete Multivitamin 1 tab PO BEDTIME 04/20/19 04/20/19 Lantus Solostar U-100 Insulin 30 unit SUBCUT BEDTIME 04/20/19 04/20/19 [facility] 1 tab PO BEDTIME 04/20/19 04/20/19 aspirin [Adult Low Dose Aspirin] 81 mg PO BEDTIME 04/20/19 04/20/19 atorvastatin 40 mg PO BEDTIME 04/20/19 04/20/19 carvedilol [Coreg] 12.5 mg PO BEDTIME 04/20/19 04/20/19 cholecalciferol (vitamin D3) 1,000 unit PO BEDTIME 04/20/19 04/20/19 cimetidine [Tagamet HB] 400 mg PO BEDTIME 04/20/19 04/20/19 diltiazem HCl [Tiazac] 360 mg PO BEDTIME 04/20/19 04/20/19 donepezil [Aricept] 10 mg PO BEDTIME 04/20/19 04/20/19 hydrochlorothiazide 25 mg PO BEDTIME 04/20/19 04/20/19 insulin lispro 5 - 10 unit SUBCUT TID PRN 04/20/19 04/20/19 losartan 100 mg PO BEDTIME 04/20/19 04/20/19 naloxone 4 mg INTRANASAL Q3M PRN 04/20/19 04/20/19 oxycodone [OxyContin] 10 mg PO BID 04/20/19 04/20/19 oxycodone-acetaminophen [Percocet] 1 tab PO Q6H PRN 04/20/19 04/20/19 potassium chloride 8 meq PO BEDTIME 04/20/19 04/20/19 trazodone 150 mg PO BEDTIME 04/20/19 04/20/19 Allergies Allergy/AdvReac Type Severity Reaction Status Date / Time iodine [IODINE] Allergy Severe Anaphylaxis Verified 04/20/19 17:30 Review of Systems Constitutional Constitutional: Denies chills, Denies fatigue, Denies fever(s), Denies frequent falls, Denies lethargy and Reports weakness Eyes Eyes: Denies change in vision, Denies eye discharge, Denies irritation and Denies loss of vision ENT Ears, Nose, Mouth, and Throat: Denies change in voice, Denies dizziness, Denies neck pain, Denies sore throat and Denies throat swelling Cardiovascular Cardiovascular: Denies chest pain, Denies irregular heart rhythm, Denies lightheadedness, Denies palpitations, Denies dyspnea, Denies dyspnea on exertion and Denies orthopnea Respiratory Respiratory: Denies cough, Denies dyspnea, Denies dyspnea on exertion and Denies wheezing Gastrointestinal Gastrointestinal: Reports abdominal pain, Denies change in bowel habits, Reports coffee ground emesis, Denies diarrhea, Denies nausea and Denies vomiting Genitourinary Genitourinary: Denies hematuria, Denies flank pain, Denies urinary incontinence and Denies urinary urgency Musculoskeletal Musculoskeletal: Denies back pain, Denies muscle weakness, Denies neck pain, Denies numbness and Denies tingling Integumentary/Breasts Skin/Breast: Denies pruritus, Denies erythema, Denies rash and Denies wounds Neurologic Neurologic: Denies behavioral changes, Denies confusion, Denies dizziness, Denies frequent falls, Denies loss of vision, Denies numbness, Denies tingling and Reports weakness Psychiatric Psychiatric: Denies anxiety, Denies behavioral changes, Denies confusion, Denies depression, Denies homicidal ideation and Denies suicidal ideation Endocrine Endocrine: Denies fatigue, Denies flushing and Denies palpitations Hematologic/Lymphatic Hematologic/Lymphatic: Denies easy bruising Allergic/Immunologic Allergic/Immunologic: Denies urticaria, Denies throat swelling and Denies wheezing Patient History Medical History Biliary stricture (Inactive) Chronic atrial fibrillation (Acute) 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) Dementia (Acute) Diabetic retinopathy (Acute) Gastroesophageal reflux disease (Acute) Hyperlipidemia (Acute) Hypertension (Acute) shelter prescription opiate use (Acute) Osteopenia (Acute) Paroxysmal atrial fibrillation (Acute) 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 Well-nourished, well-developed patient, in mild distress. Tearful, crying, rubbing her abdomen HEAD: Atraumatic. Normocephalic. EYES: Pupils equal round and reactive. Extraocular motions intact. No scleral icterus. No injection or drainage. ENT: Nose without bleeding, purulent drainage. Throat without erythema, tonsillar hypertrophy or exudate. Airway patent. NECK: Trachea midline. Non tender CARDIOVASCULAR: Irregular rate and rhythm without murmurs, gallops, or rubs. RESPIRATORY: Clear to auscultation. Breath sounds equal bilaterally. No wheezes, rales, or rhonchi. GASTROINTESTINAL: Abdomen soft, tender in her epigastrium, nondistended. EXTREMITIES: No edema or joint tenderness. BACK: Nontender without deformity or crepitance. No flank tenderness. NEURO: AOx3. SKIN: No rash or erythema of visible areas Initial Vital Signs Initial Vital Signs: Vital Signs Temperature 98.9 F 04/24/19 19:59 Pulse Rate 71 04/24/19 19:59 Respiratory Rate 16 04/24/19 19:59 Blood Pressure 188/87 H 04/24/19 19:59 Pulse Oximetry 100 04/24/19 19:59 Course Orders Ordered: ED Orders 04/24/19 20:16 Complete Blood Count AUTO DIFF Stat Comprehensive Metabolic Panel Stat Lipase Stat Partial Thromboplastin Time Stat Prothrombin Time INR Stat Type and Screen Stat 04/24/19 20:25 EKG-12 Lead Stat 04/24/19 21:38 XR acute abdomen series Stat 04/24/19 21:53 Urine Culture Stat Urine Microscopic Stat 04/24/19 22:36 US abdomen limited Stat Discontinued Medications Hydromorphone HCl (Dilaudid) 0.5 mg IV NOW ONE Stop: 04/24/19 20:28 Last Admin: 04/24/19 20:34 Dose: 0.5 mg Documented by: MANOHAR Hydromorphone HCl (Dilaudid) 0.5 mg IV NOW ONE Stop: 04/24/19 23:51 Last Admin: 04/24/19 23:55 Dose: 0.5 mg Documented by: MNAOHAR Ondansetron HCl (Zofran) 4 mg IV NOW ONE Stop: 04/24/19 20:18 Last Admin: 04/24/19 20:26 Dose: 4 mg Documented by: MANOHAR Pantoprazole Sodium (Protonix) 40 mg IV NOW ONE Stop: 04/24/19 20:18 Last Admin: 04/24/19 20:28 Dose: 40 mg Documented by: MANOHAR Consultations Consultation #1: Discussion with hospitalist and general surgeon. Given her recent visit and surgical note stating patient's need for hospital with GI and access to ERCP they refuse patient tonight and suggest transfer. call to Dr. Leticia Reyna happy to accept but asks that I speak with GI. call to Dr. [facility] whom is happy to be involved as professional benefits sales consultant Family notifed and they understand and agree with the plan Vital Signs Vital signs: Vital Signs - 8 hr 04/24/19 19:59 04/24/19 20:36 04/24/19 22:00 Temperature 98.9 F Pulse Rate 71 93 H 87 Respiratory Rate 16 19 18 Blood Pressure 188/87 H Blood Pressure [Left Arm] 186/95 H 180/94 H Pulse Oximetry 100 99 87 L 04/24/19 22:50 04/25/19 01:14 Temperature Pulse Rate 69 75 Respiratory Rate 24 20 Blood Pressure Blood Pressure [Left Arm] 180/94 H 201/81 H Pulse Oximetry 100 100 MDM - Abdominal Pain Lab Data Result diagrams: 04/24/19 20:16 04/24/19 20:16 Labs: Lab Results 04/24/19 04/24/19 04/24/19 Range/Units 20:16 20:16 20:16 WBC 15.6 H (4.5-11.0) X10^3/uL RBC 3.00 L (4.0-5.2) X10^6/uL Hgb 8.9 L (12.0-16.0) g/dL Hct 27.0 L (36-46) % MCV 90.1 (80-100) fL MCH 29.7 (26-34) PG MCHC 33.0 (30-36) % RDW 15.5 H (11.6-14.8) % Plt Count 431 H (150-400) X10^3/uL Neut % (Auto) 77.7 H (50-75) % Lymph % (Auto) 15.1 L (25-40) % [place] % (Auto) 6.0 (3-14) % Eos % (Auto) 0.3 L (2-4) % Baso % (Auto) 0.9 (0-2) % Neut # (Auto) 11908 H (9068-5015) /uL Lymph # (Auto) 2400 (5310-6230) /uL [place] # (Auto) 900 (0-900) /uL Eos # (Auto) 0 (0-450) /uL Baso # (Auto) 100 (0-100) /uL PT 11.7 (10.1-12.7) SECONDS INR 1.0 (0.9-1.3) APTT 29 D (26.4-36.2) SECONDS Sodium 141 (137-145) mmol/L Potassium 4.2 (3.4-5.1) mmol/L Chloride 105 (98-107) mmol/L Carbon Dioxide 25 (22-32) mmol/L BUN 25 H (7-17) mg/dL Creatinine 1.20 H (0.52-1.04) mg/dL Estimated GFR 43.3 L (>60) mL/min BUN/Creatinine Ratio 20.8 (6-22) Glucose 202 H (80-110) mg/dL Calcium 9.6 (8.4-10.2) mg/dL Total Bilirubin 0.4 (0.2-1.3) mg/dL AST 34 (14-36) IU/L ALT 19 (<35) IU/L Alkaline Phosphatase 94 (38-126) U/L Total Protein 7.4 (6.3-8.2) g/dL Albumin 4.0 (3.5-5.0) g/dL Globulin 3.4 (1.7-4.1) g/dL Albumin/Globulin Ratio 1.2 (1.0-2.8) Lipase (23-300) U/L Urine RBC (0-5/HPF) Urine WBC (0-5/HPF) Ur Squamous Epith Cells (0-5/HPF) Urine Bacteria (None) Hyaline Casts (None) Ur Culture Indicated? Blood Type Antibody Screen 04/24/19 04/24/19 04/24/19 Range/Units 20:16 20:16 21:53 WBC (4.5-11.0) X10^3/uL RBC (4.0-5.2) X10^6/uL Hgb (12.0-16.0) g/dL Hct (36-46) % MCV (80-100) fL MCH (26-34) PG MCHC (30-36) % RDW (11.6-14.8) % Plt Count (150-400) X10^3/uL Neut % (Auto) (50-75) % Lymph % (Auto) (25-40) % [place] % (Auto) (3-14) % Eos % (Auto) (2-4) % Baso % (Auto) (0-2) % Neut # (Auto) (3556-8512) /uL Lymph # (Auto) (4018-4451) /uL [place] # (Auto) (0-900) /uL Eos # (Auto) (0-450) /uL Baso # (Auto) (0-100) /uL PT (10.1-12.7) SECONDS INR (0.9-1.3) APTT (26.4-36.2) SECONDS Sodium (137-145) mmol/L Potassium (3.4-5.1) mmol/L Chloride (98-107) mmol/L Carbon Dioxide (22-32) mmol/L BUN (7-17) mg/dL Creatinine (0.52-1.04) mg/dL Estimated GFR (>60) mL/min BUN/Creatinine Ratio (6-22) Glucose (80-110) mg/dL Calcium (8.4-10.2) mg/dL Total Bilirubin (0.2-1.3) mg/dL AST (14-36) IU/L ALT (<35) IU/L Alkaline Phosphatase (38-126) U/L Total Protein (6.3-8.2) g/dL Albumin (3.5-5.0) g/dL Globulin (1.7-4.1) g/dL Albumin/Globulin Ratio (1.0-2.8) Lipase 708 H D (23-300) U/L Urine RBC None seen (0-5/HPF) Urine WBC 0-1/hpf (0-5/HPF) Ur Squamous Epith Cells 0-1 /hpf (0-5/HPF) Urine Bacteria None seen (None) Hyaline Casts 0-1/lpf (None) Ur Culture Indicated? Specimen cultured Blood Type A Positive Antibody Screen Negative Point of care testing: Urine Dip Bedside Urine Glucose Negative Bedside Urine Bilirubin - Negative Bedside Urine Ketone + 15 Urine Specific [place] 1.020 Bedside Urine Occult Blood +/- Bedside Urine pH 5.5 Bedside Urine Protein + 30 Bedside Urine Urobilinogen - Negative Bedside Urine Nitrite - Negative Bedside Urine Leukocytes +/- 15 Esterase Critical Care Time Critical Care Time Critical Care Time: Yes Total Critical Care Time: 35 Attestation: The high probability of a clinically significant, sudden or life threatening deterioration of the [GI] system(s) required my full and direct attention, intervention and personal management. The aggregate critical care time was [35] minutes. This time is in addition to time spent performing reported procedures but includes the following: [x] Data Review and interpretation [x] Patient assessment and monitoring of vital signs [x] Documentation [x] Medication orders and management Discharge Plan Departure Patient Disposition: [facility] Clinical Impression: Acute upper gastrointestinal bleeding Acute pancreatitis Qualifiers: Pancreatitis type: unspecified pancreatitis type Acute pancreatitis complication: unspecified Qualified Code(s): K85.90 - Acute pancreatitis without necrosis or infection, unspecified Prescriptions: No Action atorvastatin 40 mg Tablet 40 mg PO BEDTIME RF: 0 carvedilol [Coreg] 12.5 mg Tablet 12.5 mg PO BEDTIME RF: 0 potassium chloride 8 mEq Capsule, Extended Release 8 meq PO BEDTIME RF: 0 donepezil [Aricept] 10 mg Tablet 10 mg PO BEDTIME RF: 0 diltiazem HCl [Tiazac] 360 mg Capsule,Extended Release 24 Hr 360 mg PO BEDTIME RF: 0 aspirin [Adult Low Dose Aspirin] 81 mg Tablet,Delayed Release (Dr/Ec) 81 mg PO BEDTIME RF: 0 oxycodone-acetaminophen [Percocet] 5-325 mg Tablet 1 tab PO Q6H PRN (Reason: Pain (Scale Score 4-6)) RF: 0 cimetidine [Tagamet HB] 200 mg Tablet 400 mg PO BEDTIME RF: 0 trazodone 150 mg Tablet 150 mg PO BEDTIME RF: 0 hydrochlorothiazide 25 mg Tablet 25 mg PO BEDTIME RF: 0 losartan 100 mg Tablet 100 mg PO BEDTIME RF: 0 Complete Multivitamin Tablet 1 tab PO BEDTIME RF: 0 insulin lispro 100 unit/mL Cartridge 5 - 10 unit SUBCUT TID PRN (Reason: diabetes) RF: 0 Lantus Solostar U-100 Insulin 100 unit/mL (3 mL) Insulin Pen 30 unit SUBCUT BEDTIME RF: 0 cholecalciferol (vitamin D3) 1,000 unit/drop Drops 1,000 unit PO BEDTIME RF: 0 oxycodone [OxyContin] 10 mg Tablet,Oral Only,Ext.Rel.12 Hr 10 mg PO BID RF: 0 naloxone 4 mg/actuation [place],Non-Aerosol 4 mg INTRANASAL Q3M PRN (Reason: decreased responsiveness) RF: 0 [facility] 50 mg-15 unit- 4.5 mg-2.5 mg Tablet,Chewable 1 tab PO BEDTIME RF: 0
[2019-04-24 20:24] LABS: Add Manual Diff / Slide Review NO; Basophils Absolute Auto 100 /uL (0-100); Basophils Percent Auto 0.9 % (0-2); Eosinophils Absolute Auto 0 /uL (0-450); Eosinophils Percent Auto 0.3 % (2-4); Hemoglobin 8.9 g/dL (12.0-16.0); Lymphocytes Absolute Auto 2400 /uL (1100-4500); Lymphocytes Percent Auto 15.1 % (25-40); Mean Corpuscular Hemoglobin 29.7 PG (26-34); Mean Corpuscular Volume 90.1 fL (80-100); Monocytes Absolute Auto 900 /uL (0-900); Neutrophils Absolute Auto 12100 /uL (1500-7000); Neutrophils Percent Auto 77.7 % (50-75); Platelet Count 431 X10^3/uL (150-400); Red Cell Distribution Width 15.5 % (11.6-14.8); White Blood Cell Count 15.6 X10^3/uL (4.5-11.0)
[2019-04-24] MEDS: ONDANSETRON 4 MG/2 ML INJ IV (20:26)
[2019-04-24] MEDS: PANTOPRAZOLE 40 MG VIAL IV (20:28)
[2019-04-24 20:31] LABS: Prothrombin Time 11.7 SECONDS (10.1-12.7)
[2019-04-24 20:34] LABS: PTT Partial Thromboplastin Tim 29 SECONDS (26.4-36.2)
[2019-04-24] MEDS: HYDROMORPHONE 0.5 MG INJ IV ×2 (20:34→23:55)
[2019-04-24 20:35] LABS: Alanine Aminotransferase 19 IU/L (<35); Albumin Globulin Ratio 1.2 (1.0-2.8); Alkaline Phosphatase 94 U/L (38-126); Aspartate Aminotransferase 34 IU/L (14-36); BUN Creatinine Ratio 20.8 (6-22); Bilirubin Total 0.4 mg/dL (0.2-1.3); Blood Urea Nitrogen 25 mg/dL (7-17); Calcium 9.6 mg/dL (8.4-10.2); Carbon Dioxide 25 mmol/L (22-32); Chloride 105 mmol/L (98-107); Estimated Glomerular Filt Rate 43.3 mL/min (>60); Globulin 3.4 g/dL (1.7-4.1); Glucose 202 mg/dL (80-110); HEMOLYSIS < 15 (0-50); Potassium 4.2 mmol/L (3.4-5.1); Sodium 141 mmol/L (137-145); Total Protein 7.4 g/dL (6.3-8.2)
[2019-04-24 20:36] VITALS: BP 186/95; PULSE 93; RESP 19; O2SAT 99
--- NOTE | 2019-04-24 21:38 | DI.RAD.S_ITS ---
PROCEDURE: XR ACUTE ABDOMEN SERIES INDICATIONS: Abdominal pain TECHNIQUE: One view chest and two views of the abdomen were acquired. COMPARISON: [facility], CT, CT ABDOMEN PELVIS WO CON, 04/20/2019, 19:25. FINDINGS: Surgical changes and devices: Cholecystectomy clips. Chest: Lungs are clear. Heart size is normal. No pleural effusions. No pneumoperitoneum. Abdomen: Bowel gas pattern is nonspecific with mild gaseous distention of multiple loops of small bowel and scattered air-fluid levels without frontal height. No suspicious calcifications. Visualized solid organ contours appear normal. Bones: No suspicious bony lesions. Chronic appearing right obturator ring fracture. IMPRESSION: Nonspecific bowel gas pattern. If patient's symptoms persist or worsen, then CT scan of the abdomen/pelvis should be considered for further evaluation. Dictated by: Fadumo Vaughan MD, PhD on 04/25/2019 at 9:56 Approved by: Fadumo Vaughan MD, PhD on 04/25/2019 at 9:56
[2019-04-24 22:00] VITALS: BP 180/94; PULSE 87; RESP 18; O2SAT 87
[2019-04-24 22:24] LABS: Lipase 708 U/L (23-300)
[2019-04-24 22:27] LABS: Bacteria Urine None Seen; RBC Urine None Seen (0-5/HPF)
--- NOTE | 2019-04-24 22:36 | DI.US.S_ITS ---
PROCEDURE: US ABDOMEN LIMITED INDICATIONS: PANCREATITIS TECHNIQUE: Real-time focused scanning was performed of the abdomen, with image documentation. COMPARISON: None. FINDINGS: Liver has normal size and homogeneous echotexture. Gallbladder is surgically absent. Common bile duct measures 11.4 mm. Pancreas not visualized due to bowel gas. IMPRESSION: 1. Status post cholecystectomy. 2. 11.4 mm common bile duct which could be due to prior cholecystectomy or biliary obstruction. Recommend correlation with laboratory data. 3. Pancreas not visualized due to bowel gas and cannot be evaluated. Dictated by: Fadumo Vaughan MD, PhD on 04/25/2019 at 7:51 Approved by: Fadumo Vaughan MD, PhD on 04/25/2019 at 7:53
[2019-04-24 22:50] VITALS: BP 180/94; PULSE 69; RESP 24; O2SAT 100
[2019-04-24 22:58] LABS: Culture Indicated Urine Specimen Cultured; Hyaline Casts Urine 0-1/LPF; Squamous Epithelial Cell Urine 0-1 /HPF (0-5/HPF); WBC Urine 0-1/HPF (0-5/HPF)
[2019-04-25 01:14] VITALS: BP 201/81; PULSE 75; RESP 20; O2SAT 100
== END 2019-04-25 01:52 | disposition short-term general hospital (02) ==
PROVIDERS: Emergency Provider Emergency Medicine
DX: K92.2 Gastrointestinal hemorrhage, unspecified (principal); K85.90 Acute pancreatitis without necrosis or infection, unspecified; I48.0 Paroxysmal atrial fibrillation; I10 Essential (primary) hypertension; E11.9 Type 2 diabetes mellitus without complications; E78.5 Hyperlipidemia, unspecified
CPT/HCPCS: 36415; 74022; 76705; 80053; 81003; 81015; 83690; 85025; 85610; 85730; 86850; 86900; 86901; 87077; 87086; 87185; 87186; 93005; 93010; 96374; 96375; 96376; 99284; 99291; C9113; J1170; J2405